=== PATIENT | male | born 1965 | race African-American/Black ===

== ENCOUNTER 2022-03-22 07:47 | Emergency (ER) | payer SELFPAY ==
[~2022-03-22] VITALS: Ht 182.9 cm; Wt 84.0 kg
[2022-03-22] MEDS ORDERED: IBUPROFEN 800MG TABLET PO ONE (08:30)
[2022-03-22 08:33] VITALS: BP 133/93
[2022-03-22] MEDS ORDERED: IBUP-2030 MT (08:44)
== END 2022-03-22 09:07 | disposition home or self-care (01) ==
LOC: ER 08:20
DX: M70.22 Olecranon bursitis, left elbow (principal); Y93.89 Activity, other specified
CPT/HCPCS: 73080; 99283